=== PATIENT | male | born 1960 | race Caucasian/White ===

== ENCOUNTER 2020-12-08 18:02 | Emergency (ER) | payer MEDICAID, SELFPAY ==
[2020-12-08 18:25] VITALS: BP 172/89; PULSE 79; RESP 18; TEMP 37.2; O2SAT 96; BMI 22.7
[2020-12-08] MEDS: lidocaine 2% viscous 15 ML, aluminum-mag hydrox-simethicon 30 ML, sucralfate oral liq 1 GM PO (21:12)
[2020-12-08] MEDS: pantoprazole 40 mg SDV IVP (21:20)
--- NOTE | 2020-12-08 21:23 | ED_ITS ---
HPI - Abdominal Pain General: Chief Complaint: Abdominal Pain Stated Complaint: UPPER ABD PAIN Time Seen by Provider: 12/08/20 20:46 Source: patient Mode of arrival: ambulatory Limitations: no limitations History of Present Illness: HPI narrative: 60-year-old male presents to the emergency department with complaints of epigastric abdominal pain. Symptoms started 5 days ago and have persisted. Anything he eats or drinks worsens his pain. He states that he is unable to take the pain any longer and so he is here to be evaluated. He has nausea but no vomiting. He endorses some diarrhea. No fever. No sick contacts. MD elicited complaint: abdominal pain Onset (ago): day(s) (5) Pain Consistency: constant Location: Epigastric Severity: severe Quality: stabbing Radiation: none Migration to: no migration Exacerbating factors: eating Relieving factors: nothing Associated Symptoms: Denies anorexia, belching, bloating, change in bowel habits, change in stool character and chills Review of Systems 2 Const: Denies: chills GI: Denies: bloating, belching, change in bowel habits or change in stool character PFS ED PFSH: Social History (Updated 09/24/20 @ 08:36 by Bessy Landeros LPN) Smoking and tobacco status: current every day smoker cigarettes Packs smoked per day: 1.5 Alcohol intake: never Lives independently: Yes History of recent travel: No Physical Exam Const: COMMON NORMALS: no acute distress, average body habitus, patient oriented x3, no limitations, healthy appearing, alert and well nourished HENMT: COMMON NORMALS: normocephalic, atraumatic and moist oral mucous membranes HEAD & SCALP: normocephalic and atraumatic Neck/C-Spine: COMMON NORMALS: no meningeal signs and no JVD Resp: COMMON NORMALS: normal respiratory effort, No retractions, No use of accessory muscles, clear to auscultation bilaterally and percussion normal AUSCULTATION: clear to auscultation bilaterally PERCUSSION: percussion normal Cardio: COMMON NORMALS: no JVD, regular rate, regular rhythm, S1 normal heart sound present, S2 normal heart sound present, No gallops present (Cardio), No clicks present (Cardio), No murmurs present (Cardio), No rub (Cardio) and Peripheral pulses 2+ throughout RATE: regular rate RHYTHM: regular rhythm HEART SOUNDS: S1 normal heart sound present and S2 normal heart sound present PERIPHERAL PULSES: Peripheral pulses 2+ throughout GI: COMMON NORMALS: Normal to inspection, nondistended, normoactive bowel sounds present, Soft to palpation, No hepatosplenomegaly present, no masses and no bruits PALPATION: Yes Soft to palpation, Yes Tenderness to palpation present (GI) (epigastric) and Yes No hepatosplenomegaly present Extremity: COMMON NORMALS: normal to inspection, full ROM, capillary refill normal, no calf tenderness and no pedal edema Neuro: COMMON NORMALS: patient oriented x3 SENSORIUM/ORIENTATION: Yes alert MENINGEAL SIGNS: Yes no meningeal signs Skin: COMMON NORMALS: no rashes or lesions noted, no wounds, turgor normal, no jaundice, no petechiae and no mottling GENERAL SKIN EXAM: no rashes or lesions noted and turgor normal Course Reevaluation(s): Reevaluation #1: Discussed his lab findings with him. Negati ve for acute findings. GI cocktail resolved his pain completely. He is currently pain-free. I explained that his symptoms are consistent with acute gastritis and will manage him as such. We will discharge him home with a prescription for PPI and Carafate. He was also advised on a diet for gastritis. He voiced understanding and is in agreement with the plan. Time: 22:51 Vital Signs: Vital signs: Vital Signs Temperature 98.9 F 12/08/20 18:25 Pulse Rate 73 12/08/20 23:04 Respiratory Rate 18 12/08/20 23:04 Blood Pressure 165/96 12/08/20 23:04 Pulse Oximetry 98 12/08/20 23:04 MDM - Abdominal Pain MDM Narrative: Medical decision making narrative: 60-year-old male who presents to the emergency department with epigastric pain of 5 days duration. Evaluation in the emergency department is consistent with acute gastritis and his pain was relieved with a GI cocktail. He is discharged home with a prescription for PPI and Carafate. He is to follow-up with his primary care provider. Medical Records: Attestation: I reviewed the patient's medical records. Lab Data: Attestation: I reviewed the patient's lab results. Labs: Lab Results 06/27/21 06/27/21 06/27/21 Range/Units 21:11 21:22 21:22 WBC 12.0 H (4.0-10.0) 10^3/ uL RBC 4.79 (4.1-5.3) 10^6/u L Hgb 14.7 (11.7-16.6) g/dL Hct 44.6 (42.0-52.0) % MCV 93.1 (80-94) fL MCH 30.7 (28.0-34.0) pg MCHC 33.0 (30.0-36.0) g/dL RDW 12.7 (12.1-15.1) % Plt Count 240 (130-400) 10^3/c mm MPV 11.1 H (7.4-10.4) fL Neut % (Auto) 57.5 % Lymph % (Auto) 30.5 % [place] % (Auto) 8.3 % Eos % (Auto) 2.3 % Baso % (Auto) 0.8 % Neut # (Auto) 6.88 (1.8-7.7) 10^3/u L Lymph # (Auto) 3.6 (0.8-4.8) 10^3/u L [place] # (Auto) 1.0 H (0.2-0.9) 10^3/u L Eos # (Auto) 0.3 (0.0-0.8) 10^3/u L Baso # (Auto) 0.1 (0.0-0.1) 10^3/u L Nucleated RBC % (a uto) 0 % Nucleated RBCs # 0.0 /100WBC Sodium 141 (136-145) mmol/L Potassium 3.8 (3.5-5.1) mmol/L Chloride 99 (98-107) mmol/L Carbon Dioxide 30 H (22-29) mmol/L Anion Gap 15.8 (5-19) BUN 12 (8-23) mg/dL Creatinine 0.8 (0.7-1.2) mg/dL GFR Calculation 98.0 (90-130) mL/min Glucose 112 (65-115) mg/dL Calculated Osmolal ity 293 (285-295) mOsm/k g Calcium 10.4 (8.5-10.5) mg/dL Total Bilirubin 0.4 (0.15-1.2) mg/dL AST 15 (0-40) U/L ALT 12 (0-41) U/L Alkaline Phosphata se 103 (40-130) IU/L C-Reactive Protein 26.7 H (0.0-4.9) mg/L Total Protein 7.5 (6.6-8.7) g/dL Albumin 4.6 (3.5-5.2) g/dL Globulin 2.9 (1.3-4.6) g/dL Lipase 16 (13-60) U/L Urine Color Yellow (Yellow) Urine Appearance Clear (CLEAR) Urine pH 7 (5-7) Ur Specific Gravit y 1.010 (1.005-1.030) Urine Protein Neg (Negative) Urine Glucose (UA) Norm (Normal) Urine Ketones Negative (Negative) Urine Blood Neg (Negative) Urine Nitrate Negative (Negative) Urine Bilirubin Neg (Negative) Urine Urobilinogen Norm (Negative) mg/dL Ur Leukocyte Belinda ase Negative (Negative) Discharge Plan Discharge Patient Disposition: Home Clinical Impression: Acute gastritis Qualifiers: Gastritis type: unspecified gastritis Gastritis bleeding: without bleeding Qualified Code(s): K29.00 - Acute gastritis without bleeding Condition: Stable Prescriptions: New Carafate 1 gram tablet 1 g PO TID Qty: 42 RF: 0 omeprazole 40 mg capsule,delayed release(DR/EC) 40 mg PO DAILY Qty: 30 RF: 0 Continued amlodipine 10 mg tablet 10 mg PO DAILY RF: 0 allopurinol 300 mg tablet 300 mg PO DAILY RF: 0 celecoxib [Celebrex] 200 mg capsule 200 mg PO BID RF: 0 gabapentin 600 mg tablet 1,200 mg PO TID RF: 0 tizanidine 2 mg tablet 2 mg PO BID PRNRF: 0 cetirizine [Zyrtec] 10 mg tablet 10 mg PO DAILY PRNRF: 0 fluticasone propionate 50 mcg/actuation spray,suspension 1 spray intranasal DAILY RF: 0 Discharge Orders: Discharge ED (Routine); Ordered 12/08/20 Ordered By: Jae Santoyo Referrals: Darren Jennings [Primary Care Provider] - 1-3 days Discharge Diet: As Directed Discharge Activity: Increase activity as tolerated Patient Instructions: Gastritis (ED), Diet for Ulcers and Gastritis (ED) Activity Restrictions/Additional Instructions: Return for any new or worsening symptoms. Follow-up with your primary care provider within 3 days. Take the medications as prescribed. Follow the diet as instructed. Coding Level of Care Code ED Slot Operations Manager for Bertin Lazaro
[2020-12-08 21:24] VITALS: BP 191/94; PULSE 72; RESP 18; O2SAT 98
[2020-12-08 21:46] LABS: Add Urine Microscopic? NO; Charge for UA Resulting for Rev
[2020-12-08 22:12] LABS: Bilirubin Urine Neg (Negative); Blood Urine Neg (Negative); Glucose Urine UA Norm (Normal); Ketones Urine Negative (Negative); Leukocyte Esterase Urine Negative (Negative); Nitrate Urine Negative (Negative); Protein Urine Neg (Negative); Urine Appearance Clear (CLEAR); Urine Color Yellow (Yellow); Urobilinogen Urine Norm (Negative); pH Urine 7 (5-7)
[2020-12-08 22:14] LABS: Basophils # 0.1 10^3/uL (0.0-0.1); Basophils % 0.8 %; Eosinophils # 0.3 10^3/uL (0.0-0.8); Eosinophils % 2.3 %; Hematocrit 44.6 % (42.0-52.0); Hemoglobin 14.7 g/dL (11.7-16.6); Lymphocytes # 3.6 10^3/uL (0.8-4.8); Lymphocytes % 30.5 %; Mean Corpuscular Hemoglobin 30.7 pg (28.0-34.0); Mean Corpuscular Volume 93.1 fL (80-94); Mean Platelet Volume 11.1 fL (7.4-10.4); Monocytes % 8.3 %; Neutrophils # 6.88 10^3/uL (1.8-7.7); Neutrophils % 57.5 %; Nucleated Red Blood Cells % 0 %; Platelet Count 240 10^3/cmm (130-400); Red Blood Count 4.79 10^6/uL (4.1-5.3); Red Cell Distribution Width 12.7 % (12.1-15.1)
[2020-12-08 22:15] VITALS: BP 177/87; PULSE 69; RESP 14; O2SAT 96
[2020-12-08 22:15] LABS: Alanine Aminotransferase 12 U/L (0-41); Albumin Level 4.6 g/dL (3.5-5.2); Alkaline Phosphatase 103 IU/L (40-130); Anion Gap 15.8 (5-19); Aspartate Amino Transferase 15 U/L (0-40); Blood Urea Nitrogen 12 mg/dL (8-23); C Reactive Protein 26.7 mg/L (0.0-4.9); Calcium 10.4 mg/dL (8.5-10.5); Carbon Dioxide 30 mmol/L (22-29); Chloride 99 mmol/L (98-107); Globulin 2.9 g/dL (1.3-4.6); Glucose 112 mg/dL (65-115); Lipase 16 U/L (13-60); Osmolality Calculated 293 mOsm/kg (285-295); Potassium 3.8 mmol/L (3.5-5.1); Sodium 141 mmol/L (136-145); Total Bilirubin 0.4 mg/dL (0.15-1.2); Total Protein 7.5 g/dL (6.6-8.7)
[2020-12-08 23:04] VITALS: BP 165/96; PULSE 73; RESP 18; O2SAT 98
== END 2020-12-08 23:05 | disposition home or self-care (01) ==
PROVIDERS: Physician Assistant; Emergency Provider Family Medicine; PCP Family Medicine
DX: K29.00 Acute gastritis without bleeding (principal); F17.210 Nicotine dependence, cigarettes, uncomplicated
CPT/HCPCS: 80053; 81003; 83690; 85025; 86140; 96374; 99283; C9113

== ENCOUNTER → 2021-07-10 08:31 | Outpatient (BNVA) | payer MEDICAID, SELFPAY | PROVIDERS: PCP Family Medicine; Visit Provider Psychiatry & Neurology Psychiatry | DX: F11.20 Opioid dependence, uncomplicated (principal); Z79.899 Other long term (current) drug therapy; F10.21 Alcohol dependence, in remission | CPT/HCPCS: 80307; 99204 ==

== ENCOUNTER 2021-07-11 16:12 | Emergency (ER) | payer MEDICAID, SELFPAY ==
[2021-07-11 16:29] VITALS: PULSE 115; RESP 30; TEMP 36.6; O2SAT 99
--- NOTE | 2021-07-11 17:02 | ED_ITS ---
Documented by User: Vance Foote DO 07/14/21 07:18 HPI - General Adult General: Chief complaint: General Medical Stated complaint: Sudden withdrawls from prescription meds Time Seen by Provider: 07/11/21 16:36 History of Present Illness: 61-year-old male presents emergency room complaining of withdrawals from methadone. They were planning to switch him over from methadone to Suboxone. When he began to feel like he was having a little bit of withdrawal symptoms he took his first Suboxone. He is not take any methadone for 2 days. He is tremulous nauseous and cold. Extremely anxious. Has not had any vomiting he has had some diarrhea. He is under the care of the physician for this transition and had received instructions. He felt that he had followed them but may have waited a little too long before taking this for Suboxone dose Onset (ago): hour(s) Severity: mild Quality: aching Pain Consistency: constant Relieving factors: none Exacerbating factors: none Associated symptoms: Reports diaphoresis, decreased appetite, headache(s), m alaise, nausea and palpitations; Deny chest pain, confusion, cough, dyspnea, fevers/chills, rash, seizures, short of breath, syncope or vomiting Treatments prior to arrival: none Review of Systems Const: Reports: malaise and diaphoresis ENMT: Denies: throat pain, ear or mastoid pain, nasal discharge or nasal congestion Card: Reports: palpitations; Denies: chest pain or syncope Resp: Denies: dyspnea GI: Reports: nausea; Denies: vomiting : Denies: flank pain, dysuria, urinary frequency or urinary urgency Skin/Breast: Denies: rash Neuro: Reports: headache(s); Denies: confusion PFSH ED PFSH: Medical History Psychiatric care Social History Smoking and tobacco status: current every day smoker e-cigarettes E-Cigarette Details: vaporizer device and with nicotine Quit status (tobacco): has tried quititng Number of times tried to quit tobacco: 3 Second hand smoke exposure: Yes Alcohol intake: never Lives independently: Yes History of recent travel: No Physical Exam Const: GENERAL APPEARANCE: cooperative ORIENTATION/CONSCIOUSNESS: Yes awake, Yes oriented to person, Yes oriented to place and Yes oriented to time HENMT: COMMON NORMALS: normocephalic, atraumatic and hearing grossly normal bilaterally HEAD & SCALP: normocephalic and atraumatic Neck/C-Spine: COMMON NORMALS: no JVD Resp: COMMON NORMALS: normal respiratory effort, No retractions, No use of accessory muscles and clear to auscultation bilaterally AUSCULTATION: clear to auscultation bilaterally Cardio: COMMON NORMALS: no JVD, regular rate, regular rhythm and No murmurs present (Cardio) RATE: regular rate RHYTHM: regular rhythm GI: COMMON NORMALS: Soft to palpation and No hepatosplenomegaly present AUSCULTATION: Yes normoactive bowel sounds PALPATION: Yes Soft to palpation, No Tenderness to palpation present (GI), No Guarding due to palpation present (GI) and Yes No hepatosplenomegaly present Extremity: COMMON NORMALS: normal to inspection, capillary refill normal, no clubbing, cyanosis or edema, no calf tenderness and no pedal edema Neuro: SENSORIUM/ORIENTATION: Yes oriented to person, Yes oriented to place and Yes oriented to time Skin: COMMON NORMALS: no rashes or lesions noted GENERAL SKIN EXAM: no rashes or lesions noted Course Vital Signs: Vital signs: Vital Signs Temperature 97.9 F 07/11/21 16:29 Pulse Rate 117 H 07/11/21 17:22 Respiratory Rate 26 H 07/11/21 17:22 Blood Pressure 165/131 07/11/21 17:22 Pulse Oximetry 100 07/11/21 17:22 [facility] - General Adult Medical Decision Making Turned over to Dr. Holden at change shift see his note final diagnosis and disposition. Medical Records I reviewed the patient's medical records. Lab Data I reviewed the patient's lab results. : 07/11/21 17:31 07/11/21 17:31 Laboratory Results WBC 14.0 10^3/uL (4.0-10.0) H 07/11/21 17:31 RBC 4.88 10^6/uL (4.1-5.3) 07/11/21 17:31 Hgb 14.6 g/dL (11.7-16.6) 07/11/21 17:31 Hct 43.8 % (42.0-52.0) 07/11/21 17:31 MCV 89.8 fl (80-94) 07/11/21 17: MCH 29.9 pg (28.0-34.0) 07/11/21 17: MCHC 33.3 g/dL (30.0-36.0) 07/11/21 17: RDW 13.1 % (12.1-15.1) 07/11/21 17: Plt Count 310 10^3/cmm (130-400) 07/11/21 17: MPV 10.5 fL (7.4-10.4) H 07/11/21 17: Neut % (Auto) 78.3 % 07/11/21 17: Lymph % (Auto) 14.5 % 07/11/21 17: [place] % (Auto) 5.6 % 07/11/21 17: Eos % (Auto) 0.5 % 07/11/21 17: Baso % (Auto) 0.4 % 07/11/21: Neut # (Auto) 10.95 10^3/uL (1.8-7.7) H 07/11/21 17: Lymph # (Auto) 2.0 10^3/uL (0.8-4.8) 07/11/21 17: [place] # (Auto) 0.8 10^3/uL (0.2-0.9) 07/11/21 17: Eos # (Auto) 0.1 10^3/uL (0.0-0.8) 07/11/21 17: Baso # (Auto) 0.1 10^3/uL (0.0-0.1) 07/11/21 17: Nucleated RBC % (auto) 0 % 07/11/21 17: Nucleated RBCs # 0.0 /100WBC 07/11/21 17: Sodium 139 mmol/L (136-145) 07/11/21 17: Potassium 4.5 mmol/L (3.5-5.1) 07/11/21 17: Chloride 101 mmol/L (98-107) 07/11/21 17: Carbon Dioxide 19 mmol/L (22-29) L 07/11/21 17: Anion Gap 23.5 (5-19) H 07/11/21 17:31 BUN 16 mg/dL (8-23) 07/11/21 17:31 Creatinine 0.7 mg/dL (0.7-1.2) 07/11/21 17:31 GFR Calculation 113.9 mL/min (90-130) 07/11/21 17:31 Glucose 146 mg/dL (65-115) H 07/11/21 17:31 Calculated Osmolality 292 mOsm/kg (285-295) 07/11/21 17:31 Calcium 11.1 mg/dL (8.5-10.5) H 07/11/21 17:31 Total Bilirubin 0.2 mg/dL (0.15-1.2) 07/11/21 17:31 AST 20 U/L (0-40) 07/11/21 17:31 ALT 35 U/L (0-41) 07/11/21 17:31 Alkaline Phosphatase 99 IU/L (40-130) 07/11/21 17:31 Total Protein 8.0 g/dL (6.6-8.7) 07/11/21 17:31 Albumin 4.9 g/dL (3.5-5.2) 07/11/21 17:31 Globulin 3.1 g/dL (1.3-4.6) 07/11/21 17:31 Discharge Plan Discharge Patient Disposition: Home Clinical Impression: Opioid use disorder, severe, dependence Condition: Stable Prescriptions: New Ativan 2 mg tablet 2 mg PO TID PRN (Reason: agitation) Qty: 12 0RF Zofran 4 mg tablet 4 mg PO Q6H PRN (Reason: nausea and vomiting) Qty: 10 0RF clonidine HCl 0.2 mg tablet 0.2 mg PO TID Qty: 10 0RF No Action allopurinol 300 mg tablet 300 mg PO DAILY 0RF celecoxib [Celebrex] 200 mg capsule 200 mg PO BID 0RF amlodipine 10 mg tablet 5 mg PO DAILY 0RF multivitamin Tablet 1 tab PO DAILY 0RF methadone 40 mg tablet,soluble 75 mg PO DAILY 0RF sildenafil 100 mg tablet 100 mg PO DAILY PRN0RF Rx Instructions: administer 30 minutes to 4 hours before activity buprenorphine-naloxone 2-0.5 mg film 2 film sublingual DAILY Qty: 14 0RF Rx Instructions: place 1 strip/tab under (each) side of tongue gabapentin 600 mg tablet 1,200 mg PO TID 0RF tizanidine 2 mg tablet 2 mg PO BID PRN0RF cetirizine [Zyrtec] 10 mg tablet 10 mg PO DAILY PRN0RF fluticasone propionate 50 mcg/actuation spray,suspension 1 spray intranasal DAILY PRN (Reason: allergy symptoms) 0RF Rx Instructions: administer into each nostril omeprazole 40 mg capsule,delayed release(DR/EC) 40 mg PO DAILY Qty: 30 0RF Discharge Orders: Discharge ED (Routine); Ordered 07/11/21 Ordered By: Daniel Holden Referrals: Darren Jennings [Primary Care Provider] - 1-3 days Discharge Diet: Advance as tolerated and Clear Liquid Discharge Activity: Increase activity as tolerated Patient Instructions: Opioid Safety Activity Restrictions/Additional Instructions: Return for vomiting liquids or medications despite treatment, inability to tolerate withdrawal or medication, fever, mental status changes, any other concerning symptoms. Take the medication as directed for at least the next 48 hours, then as needed. Take your nightly dose of Suboxone when you get home. Coding Level of Care Code ED Pain Medicine Physician for Chg Fwd Exam Comprehensive Documented by User: Daniel Holden DO 07/11/21 19:15 HPI - General Adult General: Chief complaint: General Medical Stated complaint: Sudden withdrawls from prescription meds Time Seen by Provider: 07/11/21 16:36 [facility] ED PFSH: Medical History Psychiatric care Social History Smoking and tobacco status: current every day smoker e-cigarettes E-Cigarette Details: vaporizer device and with nicotine Quit status (tobacco): has tried quititng Number of times tried to quit tobacco: 3 Second hand smoke exposure: Yes Alcohol intake: never Lives independently: Yes History of recent travel: No Course Vital Signs: Vital signs: Vital Signs Temperature 97.9 F 07/11/21 16:29 Pulse Rate 117 H 07/11/21 17:22 Respiratory Rate 26 H 07/11/21 17:22 Blood Pressure 165/131 07/11/21 17:22 Pulse Oximetry 100 07/11/21 17:22 MDM - General Adult Medical Decision Making Turned over to Dr. Holden at change shift see his note final diagnosis and disposition. Received in checkout from Dr. Foley at shift change. This gentleman has significant methadone withdrawal. He has been treated here with Ativan and clonidine. There was some improvement initially. He still having some trouble. His significant other would like to take him home and try to take care of him there. He has Suboxone there. He will take his dose tonight. He will be prescribed Ativan and clonidine scheduled for the next 48 hours, then as needed as well as a Suboxone. They know to return for uncontrollable symptoms. Lab Data : 07/11/21 17:31 07/11/21 17:31 Laboratory Results WBC 14.0 10^3/uL (4.0-10.0) H 07/11/21 17:31 RBC 4.88 10^6/uL (4.1-5.3) 07/11/21 17:31 Hgb 14.6 g/dL (11.7-16.6) 07/11/21 17:31 Hct 43.8 % (42.0-52.0) 07/11/21 17:31 MCV 89.8 fl (80-94) 07/11/21 17:31 MCH 29.9 pg (28.0-34.0) 07/11/21 17:31 MCHC 33.3 g/dL (30.0-36.0) 07/11/21 17:31 RDW 13.1 % (12.1-15.1) 07/11/21 17:31 Plt Count 310 10^3/cmm (130-400) 07/11/21 17:31 MPV 10.5 fL (7.4-10.4) H 07/11/21 17:31 Neut % (Auto) 78.3 % 07/11/21 17:31 Lymph % (Auto) 14.5 % 07/11/21 17:31 [place] % (Auto) 5.6 % 07/11/21 17:31 Eos % (Auto) 0.5 % 07/11/21 17:31 Baso % (Auto) 0.4 % 07/11/21 17:31 Neut # (Auto) 10.95 10^3/uL (1.8-7.7) H 07/11/21 17:31 Lymph # (Auto) 2.0 10^3/uL (0.8-4.8) 07/11/21 17: [place] # (Auto) 0.8 10^3/uL (0.2-0.9) 07/11/21 17: Eos # (Auto) 0.1 10^3/uL (0.0-0.8) 07/11/21 17: Baso # (Auto) 0.1 10^3/uL (0.0-0.1) 07/11/21 17: Nucleated RBC % (auto) 0 % 07/11/21 17: Nucleated RBCs # 0.0 /100WBC 07/11/21 17:31 Sodium 139 mmol/L (136-145) 07/11/21 17: Potassium 4.5 mmol/L (3.5-5.1) 07/11/21 17: Chloride 101 mmol/L (98-107) 07/11/21 17: Carbon Dioxide 19 mmol/L (22-29) L 07/11/21 17:31 Anion Gap 23.5 (5-19) H 07/11/21 17:31 BUN 16 mg/dL (8-23) 07/11/21 17: Creatinine 0.7 mg/dL (0.7-1.2) 07/11/21 17:31 GFR Calculation 113.9 mL/min (90-130) 07/11/21 17:31 Glucose 146 mg/dL (65-115) H 07/11/21 17:31 Calculated Osmolality 292 mOsm/kg (285-295) 07/11/21 17:31 Calcium 11.1 mg/dL (8.5-10.5) H 07/11/21 17:31 Total Bilirubin 0.2 mg/dL (0.15-1.2) 07/11/21 17: AST 20 U/L (0-40) 07/11/21 17: ALT 35 U/L (0-41) 07/11/21 17:31 Alkaline Phosphatase 99 IU/L (40-130) 07/11/21 17:31 Total Protein 8.0 g/dL (6.6-8.7) 07/11/21 17:31 Albumin 4.9 g/dL (3.5-5.2) 07/11/21 17:31 Globulin 3.1 g/dL (1.3-4.6) 07/11/21 17:31 Discharge Plan Discharge Patient Disposition: Home Clinical Impression: Opioid use disorder, severe, dependence Condition: Stable Prescriptions: New Ativan 2 mg tablet 2 mg PO TID PRN (Reason: agitation) Qty: 12 0RF Zofran 4 mg tablet 4 mg PO Q6H PRN (Reason: nausea and vomiting) Qty: 10 0RF clonidine HCl 0.2 mg tablet 0.2 mg PO TID Qty: 10 0RF No Action allopurinol 300 mg tablet 300 mg PO DAILY 0RF celecoxib [Celebrex] 200 mg capsule 200 mg PO BID 0RF amlodipine 10 mg tablet 5 mg PO DAILY 0RF multivitamin Tablet 1 tab PO DAILY 0RF methadone 40 mg tablet,soluble 75 mg PO DAILY 0RF sildenafil 100 mg tablet 100 mg PO DAILY PRN0RF Rx Instructions: administer 30 minutes to 4 hours before activity buprenorphine-naloxone 2-0.5 mg film 2 film sublingual DAILY Qty: 14 0RF Rx Instructions: place 1 strip/tab under (each) side of tongue gabapentin 600 mg tablet 1,200 mg PO TID 0RF tizanidine 2 mg tablet 2 mg PO BID PRN0RF cetirizine [Zyrtec] 10 mg tablet 10 mg PO DAILY PRN0RF fluticasone propionate 50 mcg/actuation spray,suspension 1 spray intranasal DAILY PRN (Reason: allergy symptoms) 0RF Rx Instructions: administer into each nostril omeprazole 40 mg capsule,delayed release(DR/EC) 40 mg PO DAILY Qty: 30 0RF Discharge Orders: Discharge ED (Routine); Ordered 07/11/21 Ordered By: Daniel Holden Referrals: Darren Jennings [Primary Care Provider] - 1-3 days Discharge Diet: Advance as tolerated and Clear Liquid Discharge Activity: Increase activity as tolerated Patient Instructions: Opioid Safety Activity Restrictions/Additional Instructions: Return for vomiting liquids or medications despite treatment, inability to tolerate withdrawal or medication, fever, mental status changes, any other concerning symptoms. Take the medication as directed for at least the next 48 hours, then as needed. Take your nightly dose of Suboxone when you get home. Coding Level of Care Code ED Pain Medicine Physician for Bertin Lazaro Exam Comprehensive
[2021-07-11 17:18] VITALS: BP 165/131
[2021-07-11] MEDS: promethazine 25 mg/mL SDV 1 mL IM (17:18)
[2021-07-11] MEDS: cloNIDine 0.1 mg Tablet PO ×2 (17:18→18:21)
[2021-07-11] MEDS: LORazepam 2 mg/mL INJ 1 mL IVP ×2 (17:21→18:22)
[2021-07-11] MEDS: sodium chloride 0.9% 1,000 ML 999 ML IV (17:21)
[2021-07-11 17:22] VITALS: BP 165/131; PULSE 117; RESP 26; O2SAT 100
[2021-07-11 17:46] LABS: Basophils # 0.1 10^3/uL (0.0-0.1); Basophils % 0.4 %; Eosinophils # 0.1 10^3/uL (0.0-0.8); Eosinophils % 0.5 %; Hematocrit 43.8 % (42.0-52.0); Hemoglobin 14.6 g/dL (11.7-16.6); Lymphocytes % 14.5 %; Mean Corpuscular HGB Conc 33.3 g/dL (30.0-36.0); Mean Corpuscular Hemoglobin 29.9 pg (28.0-34.0); Mean Corpuscular Volume 89.8 fl (80-94); Mean Platelet Volume 10.5 fL (7.4-10.4); Monocytes # 0.8 10^3/uL (0.2-0.9); Monocytes % 5.6 %; Neutrophils # 10.95 10^3/uL (1.8-7.7); Neutrophils % 78.3 %; Nucleated Red Blood Cells % 0 %; Platelet Count 310 10^3/cmm (130-400); Red Blood Count 4.88 10^6/uL (4.1-5.3); Red Cell Distribution Width 13.1 % (12.1-15.1)
[2021-07-11 18:01] LABS: Alanine Aminotransferase 35 U/L (0-41); Albumin Level 4.9 g/dL (3.5-5.2); Alkaline Phosphatase 99 IU/L (40-130); Anion Gap 23.5 (5-19); Aspartate Amino Transferase 20 U/L (0-40); Blood Urea Nitrogen 16 mg/dL (8-23); Calcium 11.1 mg/dL (8.5-10.5); Carbon Dioxide 19 mmol/L (22-29); Chloride 101 mmol/L (98-107); Globulin 3.1 g/dL (1.3-4.6); Glomerular Filtration Rate 113.9 mL/min (90-130); Glucose 146 mg/dL (65-115); Osmolality Calculated 292 mOsm/kg (285-295); Potassium 4.5 mmol/L (3.5-5.1); Sodium 139 mmol/L (136-145); Total Bilirubin 0.2 mg/dL (0.15-1.2)
== END 2021-07-11 20:18 | disposition home or self-care (01) ==
PROVIDERS: Family Medicine; Emergency Provider Emergency Medicine; PCP Family Medicine
DX: F11.20 Opioid dependence, uncomplicated (principal); Z79.891 Long term (current) use of opiate analgesic; F17.290 Nicotine dependence, other tobacco product, uncomplicated
CPT/HCPCS: 80053; 85025; 96372; 96374; 96375; 96376; 99284; J2060; J2550; J7030

== ENCOUNTER → 2021-07-21 11:27 | Outpatient (BNVA) | payer MEDICAID, SELFPAY | PROVIDERS: PCP Family Medicine; Visit Provider Psychiatry & Neurology Psychiatry | DX: F10.21 Alcohol dependence, in remission (principal); F11.20 Opioid dependence, uncomplicated; Z79.899 Other long term (current) drug therapy | CPT/HCPCS: 80307; 99214 ==

== ENCOUNTER → 2021-08-04 11:23 | Outpatient (BNVA) | payer MEDICAID, SELFPAY | PROVIDERS: PCP Family Medicine; Visit Provider Psychiatry & Neurology Psychiatry | DX: F11.20 Opioid dependence, uncomplicated (principal); Z79.899 Other long term (current) drug therapy; F10.21 Alcohol dependence, in remission | CPT/HCPCS: 80307; 99214 ==

== ENCOUNTER → 2021-09-29 10:29 | Outpatient (BNVA) | payer MEDICAID, SELFPAY | PROVIDERS: PCP Family Medicine; Visit Provider Psychiatry & Neurology Psychiatry | DX: F11.20 Opioid dependence, uncomplicated (principal); Z79.899 Other long term (current) drug therapy; F10.21 Alcohol dependence, in remission | CPT/HCPCS: 99214; 80307 ==

== ENCOUNTER → 2021-12-19 11:35 | Outpatient (BNVA) | payer MEDICAID, OTHER, SELFPAY | PROVIDERS: PCP Family Medicine; Visit Provider Psychiatry & Neurology Psychiatry | DX: F11.20 Opioid dependence, uncomplicated (principal); Z79.899 Other long term (current) drug therapy; F10.21 Alcohol dependence, in remission | CPT/HCPCS: 80307 ==

== ENCOUNTER → 2022-03-13 10:43 | Outpatient (BNVA) | payer MEDICAID, SELFPAY | PROVIDERS: PCP Family Medicine; Visit Provider Psychiatry & Neurology Psychiatry | DX: F11.20 Opioid dependence, uncomplicated (principal); Z79.899 Other long term (current) drug therapy; F10.21 Alcohol dependence, in remission | CPT/HCPCS: 80307 ==

== ENCOUNTER → 2022-08-21 12:00 | Outpatient (BNVA) | payer MEDICAID, SELFPAY | PROVIDERS: PCP Family Medicine; Visit Provider Psychiatry & Neurology Psychiatry | DX: F10.21 Alcohol dependence, in remission (principal); F11.20 Opioid dependence, uncomplicated; Z79.899 Other long term (current) drug therapy | CPT/HCPCS: 80307 ==

== ENCOUNTER 2022-09-06 22:50 | Emergency (ER) | payer MEDICAID, SELFPAY ==
[2022-09-06 23:12] VITALS: BP 175/93; PULSE 79; RESP 22; TEMP 36.8; O2SAT 99; BMI 24.3
[2022-09-07 01:04] LABS: Influenza A by IFA negative (Negative); Influenza B by IFA negative (Negative); SARS Covid-2 Antigen negative (Negative)
--- NOTE | 2022-09-07 03:13 | ED_ITS ---
HPI - URI/Sore Throat General: Chief Complaint: Upper Respiratory Infection Stated Complaint: congestion Time Seen by Provider: 09/07/22 00:36 Source: patient Mode of arrival: ambulatory Limitations: no limitations History of Present Illness: Patient presents to the emergency department today for evaluation and treatment of complaints of nasal congestion. Chart review shows patient was already seen today at another facility where he was diagnosed with sinusitis and given a prescription for Augmentin. They recommended kgij-xgs-ovntryk options for nasal congestion including Flonase. Patient states his nose has been congested now for the last couple of days. Asked him if he would start his antibiotics and he stated he has not as the pharmacy he chose is not open. Asked him if he used the yhsn-ego-juxowvp options previously discussed such as Flonase but, he said that those do not work for him. I asked about a Latasha pot rinse and he indicates he will not use those. Associated symptoms: Reports nasal congestion Review of Systems General: Reports: 10 or more systems reviewed and unremarkable except in HPI and below ENMT: Reports: nasal discharge and nasal congestion PFS ED PFSH: Medical History Psychiatric care Social History Smoking and tobacco status: current every day smoker e-cigarettes E-Cigarette Details: vaporizer device and with nicotine E-cig/vape details: Refill/daily. Quit status (tobacco): has tried quititng Number of times tried to quit tobacco: 3 Second hand smoke exposure: No Smoking risk assessment/counseling performed?: No Alcohol intake: former Year of sobriety/quit date alcohol: 2018 Desire information about alcohol rehabilitation?: No Counseling given: No Desire information about substance/drug rehabilitation?: No Counseling given: No Lives independently: Yes Physical Exam Const: COMMON NORMALS: no acute distress, patient oriented x3 and alert HENMT: COMMON NORMALS: normocephalic, hearing grossly normal bilaterally, external ears normal, Normal external nose present and moist oral mucous membranes HEAD & SCALP: normocephalic NOSE: Normal external nose present EXTERNAL EAR: Yes external ears normal OTHER: Patient is audibly congested and is packing twisted up tissues into his nose. Eye: COMMON NORMALS: Equal, round and reactive pupils present, EOMs intact bilaterally and conjunctivae normal CONJUNCTIVA: Yes conjunctivae normal PUPIL: Yes Equal, round and reactive pupils present Neck/C-Spine: COMMON NORMALS: no JVD Lymph: LYMPHATIC: no lymphadenopathy noted Resp: COMMON NORMALS: normal respiratory effort, No retractions and No use of accessory muscles Cardio: COMMON NORMALS: no JVD and regular rate RATE: regular rate : COMMON NORMALS: Yes no CVA tenderness BLADDER/KIDNEY EXAM: Yes no CVA tenderness Back/Pelvis: COMMON NORMALS: no CVA tenderness, thoracic and lumbar spine normal to inspection and thoraco-lumbar ROM normal Extremity: COMMON NORMALS: normal to inspection, full ROM and no pedal edema Neuro: COMMON NORMALS: patient oriented x3 SENSORIUM/ORIENTATION: Yes alert Skin: COMMON NORMALS: no rashes or lesions noted and turgor normal GENERAL SKIN EXAM: no rashes or lesions noted and turgor normal Course Vital Signs: Vital signs: Vital Signs Temperature 98.2 F 09/06/22 23:12 Pulse Rate 79 09/06/22 23:12 Respiratory Rate 22 H 09/06/22 23:12 Blood Pressure 175/93 09/06/22 23:12 Pulse Oximetry 99 09/06/22 23:12 Oxygen Delivery Me thod 09/06/22 23:12 MDM - URI/Sore Throat Medical Decision Making Patient presents to the emergency department today for complaints of nasal congestion. Patient was already seen and evaluated earlier today and diagnosed with sinusitis and given a prescription for Augmentin. Patient has not taken this medication yet. I did offer the first dose here in the ER but patient refused. Patient also indicates he does not use the imcv-vzc-sebqfgr nasal congestion medications as they do not work or he refuses to use sinus rinses. I asked the patient what it is that does work for him as I thought he seemed to be indicating that there was a different treatment he had not received. However, patient stated he was wanting something that would take his nasal congestion away tonight. Explained to him that there is no medication that will instantly relieve his nasal congestion. Explained that we recommend kbdu-fgt-usmsbpr treatments such as Flonase, saline sprays, [place], and antihistamines. Patient got upset that there was no other medication he could get. Again, offered him his first antibiotic dose here in the ER tonight but he refused. Patient indicated he just wanted to go home and left before receiving discharge paperwork. Differential Diagnosis Likely upper respiratory infection, sinusitis and viral infection Lab Data Laboratory Results Influenza Type A Ag negative (Negative) 09/07/22 00:36 Influenza Type B Ag negative (Negative) 09/07/22 00:36 SARS-CoV-2 Ag (Rapid) negative (Negative) 09/07/22 00:36 Discharge Plan Discharge Patient Disposition: Home Clinical Impression: Complaint of nasal congestion Condition: Stable Prescriptions: No Action allopurinol 300 mg tablet 300 mg PO DAILY celecoxib [Celebrex] 200 mg capsule 200 mg PO BID amlodipine 10 mg tablet 5 mg PO DAILY multivitamin Tablet 1 tab PO DAILY sildenafil 100 mg tablet 100 mg PO DAILY PRN Rx Instructions: administer 30 minutes to 4 hours before activity gabapentin 600 mg tablet 1,200 mg PO TID tizanidine 2 mg tablet 2 mg PO BID PRN cetirizine [Zyrtec] 10 mg tablet 10 mg PO DAILY PRN fluticasone propionate 50 mcg/actuation spray,suspension 1 spray intranasal DAILY PRN (Reason: allergy symptoms) Rx Instructions: administer into each nostril buprenorphine-naloxone 8-2 mg film 1.5 film sublingual DAILY Qty: 45 2RF amoxicillin-pot clavulanate 875-125 mg tablet 1 tab PO BID 7 Days Qty: 14 0RF omeprazole 40 mg capsule,delayed release(DR/EC) 40 mg PO DAILY Qty: 30 0RF clonidine HCl 0.2 mg tablet 0.2 mg PO TID Qty: 10 0RF Discharge Orders: Discharge ED (Routine); Ordered 09/07/22 Ordered By: Caroline Lua Referrals: Darren Jennings [Primary Care Provider] - Discharge Diet: Usual diet Discharge Activity: Resume usual activity Coding Level of Care Code ED [employer] for Bertin Lazaro
== END 2022-09-07 01:56 | disposition home or self-care (01) ==
PROVIDERS: General Practice; Emergency Provider Physician Assistant; PCP Family Medicine
DX: R09.81 Nasal congestion (principal); Z20.822 Contact with and (suspected) exposure to COVID-19; F17.290 Nicotine dependence, other tobacco product, uncomplicated
CPT/HCPCS: 87426; 87804; 99283

== ENCOUNTER 2022-09-29 10:30 | Outpatient (CLI) | payer MEDICAID, SELFPAY ==
--- NOTE | 2022-09-29 10:36 | USCV_ITS ---
Warren Hernandez Age: 62 Gender: M : 1960 Exam Date: 09/29/2022 11:20 Ordering Phys: Darren Jennings Technologist: [place] [facility] [place] sob chest pain BP: 142 / 84 HR: 67 Rhythm: Sinus Technical Quality: Adequate MEASUREMENTS (Male / Female) Normal Values 2D ECHO LV Diastolic Diameter PLAX 4.0 cm 4.2 - 5.9 / 3.9 - 5.3 cm LV Systolic Diameter PLAX 2.6 cm IVS Diastolic Thickness 1.3 cm 0.6 - 1.0 / 0.6 - 0.9 cm IVS Systolic Thickness 1.9 cm LVPW Diastolic Thickness 0.9 cm 0.6 - 1.0 / 0.6 - 0.9 cm LVPW Systolic Thickness 1.7 cm LVOT Diameter 2.0 cm LV Ejection Fraction 2D Teich 65.3 % LV Ejection Fraction MOD 2C 63.5 % LV Ejection Fraction 2C AL 69.1 % LA Diameter 2.6 cm Aorta at Sinotubular Diameter 2.9 cm IVC Diameter 1.8 cm M-MODE Aortic Annulus Diameter 3.6 cm LA Ao Ratio MM 0.7 MV E Point Septal Separation 0.4 cm DOPPLER AV Peak Velocity 111.0 cm/s LVOT Peak Velocity 105.0 cm/s AV Area Cont Eq vti 2.7 cm squared AV Area Cont Eq pk 3.0 cm squared MV Peak Velocity 58.0 cm/s MV Area PHT 2.6 cm squared Mitral E to A Ratio 0.9 MV E' Velocity 29.5 cm/s Mitral E to MV E' Ratio 5.7 Mitral E to LV E' Lateral Ratio 6.2 Mitral E to LV E' Septal Ratio 5.2 TR Peak Velocity 159.7 cm/s TR Peak Gradient 10.2 mmHg TV Peak E Velocity 74.0 cm/s Right Atrial Pressure 3.0 mmHg Pulmonary Artery Systolic Pressu 13.2 mmHg FINDINGS Left Ventricle Normal left ventricular size, systolic function and wall thickness, with no regional wall motion abnormalities. Left ventricular ejection fraction is estimated at 60 %. Grade I/IV diastolic dysfunction (abnormal relaxation filling pattern), normal to mildly elevated filling pressures. Right Ventricle Normal right ventricular size and systolic function. Normal right ventricular systolic pressure. Right Atrium The right atrium is normal in size. Left Atrium The left atrium is normal in size. Mitral Valve Structurally normal mitral valve without significant stenosis or prolapse. There is no mitral regurgitation. Aortic Valve Structurally normal aortic valve without significant sclerosis or stenosis. There is no aortic regurgitation. Tricuspid Valve Structurally normal tricuspid valve. Trace tricuspid valve regurgitation. Pulmonic Valve Pulmonic valve not well visualized. Pericardium Normal pericardium without effusion. Aorta Normal ascending aorta dimension. IVC Inferior vena cava not visualized. CONCLUSIONS Normal left ventricular size, systolic function and wall thickness, with no regional wall motion abnormalities. Left ventricular ejection fraction is estimated at 60 %. Grade I/IV diastolic dysfunction (abnormal relaxation filling pattern), normal to mildly elevated filling pressures. There are no prior echocardiogram studies to compare. Dr. Orlando Julien MD (Electronically Signed) Final Date: 29 September 2022 16:24 S
== END 2022-09-29 10:31 | disposition home or self-care (01) ==
LOC: RAD 10:32
PROVIDERS: PCP Family Medicine; Visit Provider Family Medicine
DX: R68.89 Other general symptoms and signs (principal); R07.9 Chest pain, unspecified; Z82.49 Family history of ischemic heart disease and other diseases of the circulatory system; I45.10 Unspecified right bundle-branch block
CPT/HCPCS: 93306

== ENCOUNTER 2022-10-14 06:31 | Outpatient (CLI) | payer MEDICAID, SELFPAY ==
--- NOTE | 2022-10-14 | ECG_ITS ---
[facility] Test Date: 2022-10-14 Pat Name: Warren Hernandez Department: Room: Gender: Male Forming Process Worker: Evelina Vicente : 1960 Requested By: Darren Jennings Order Number: [id number] Heladio MD: Jabari Sears M.D. Interpretive Statements NAME OF STUDY: LEXISCAN SESTAMIBI STRESS TEST INDICATION: [Chest Pain, ] Procedure: At the baseline, the blood pressure was 161/83 mmHg with a heart rate of 62 bpm. The electrocardiogram showed normal sinus rhythm, incomplete right bundle branch block. The Lexiscan was infused over a period of 20 seconds. A total of 0.4 mg of Lexiscan was infused. The stress phase was continued for a total of 5 minutes. Heart rate was at the end of stress phase was 73 bpm and a blood pressure of 145/77 mmHg. The EKG at the peak infusion revealed normal sinus rhythm with no significant ST-T wave changes. Sestamibi was injected 20 seconds after the Lexiscan infusion. Blood pressure at the end of recovery phase was 146/77 mmHg with a heart rate of 72 bpm. Conclusion: 1. Normal EKG response to Lexiscan infusion 2. No Lexiscan induced chest pain or cardiac arrhythmia. 3. Normal blood pressure and heart rate response. 4. Sestamibi/sestamibi perfusion scan pending; see separate report. Electronically Signed On 10-31-2022 20:57:28 CDT by Jabari Sears M.D. [id number]
[2022-10-14 06:45] VITALS: BMI 23.6
--- NOTE | 2022-10-14 06:46 | NMCV_ITS ---
NM aury perf SPECT r/s* [id number] Warren Hernandez Age: 62 Gender: M : 1960 Exam Date: 10/14/2022 06:46 Ordering Phys: Darren Jennings Technologist: MOUNIKA Albrecht Exam Location: [facility] Indications: CHEST PAIN STRESS TEST Please see separate stress test report in [facility] for full findings IMAGE PROTOCOL Rest/Stress 1 Lexiscan Day Radiopharmaceutical Dose (mCi) Administration Site Administered by Rest: Tc-99m 10.9 IV MOUNIKA Vaughn Sestamibi Stress:Tc-99m 32.5 IV MOUNIKA Vaughn Sestamibi Rest: 14-Oct-2022 60 Discovery 630 Stress: 14-Oct-2022 30 Discovery 630 0.4mg Lexiscan. Images obtained in supine and prone position. SPECT RESULTS Technical Quality: Excellent Raw Data Analysis: Normal Image Corrections: No attenuation or motion correction applied Summed Stress Score: 0 Summed Rest Score: 0 Summed Difference Score: 0 PERFUSION FINDINGS SPECT images demonstrate homogeneous tracer distribution throughout the myocardium. FUNCTIONAL RESULTS (calculated via Gated SPECT) Stress Image LV EF (%): 86 Stress EDV (mL):65 TID: 1.03 Stress ESV (mL):9 FUNCTIONAL FINDINGS: There is normal left ventricular systolic function. IMPRESSIONS 1. Normal myocardial perfusion imaging with no evidence of ischemia 2. LV systolic function is normal aJbari Sears MD (Electronically Signed) Final Date: 14 Oct 2022 11:19 S
[2022-10-14] MEDS: regadenoson 0.4 Mg/5 ml Syringe IVP (08:05)
[2022-10-14 08:20] VITALS: BP 149/79; PULSE 94
== END 2022-10-14 06:32 | disposition home or self-care (01) ==
LOC: CDL 06:31
PROVIDERS: PCP Family Medicine; Visit Provider Family Medicine
DX: R07.9 Chest pain, unspecified (principal); Z82.49 Family history of ischemic heart disease and other diseases of the circulatory system; R06.09 Other forms of dyspnea; I45.10 Unspecified right bundle-branch block
CPT/HCPCS: 36415; 78452; 93017; 96374; A9500; J2785

== ENCOUNTER → 2022-11-27 11:52 | Outpatient (BNVA) | payer MEDICAID, SELFPAY | PROVIDERS: PCP Family Medicine; Visit Provider Psychiatry & Neurology Psychiatry | DX: F10.21 Alcohol dependence, in remission (principal); F11.20 Opioid dependence, uncomplicated; Z79.899 Other long term (current) drug therapy | CPT/HCPCS: 80307 ==

== ENCOUNTER → 2022-12-23 10:49 | Outpatient (BNVA) | payer MEDICAID, SELFPAY | PROVIDERS: PCP Family Medicine; Visit Provider Otolaryngology | DX: R09.81 Nasal congestion (principal); J34.2 Deviated nasal septum; J34.3 Hypertrophy of nasal turbinates; J31.0 Chronic rhinitis; R04.0 Epistaxis; T48.5X5A Adverse effect of other anti-common-cold drugs, initial encounter; X58.XXXA Exposure to other specified factors, initial encounter | CPT/HCPCS: 99204 ==

== ENCOUNTER → 2023-02-12 11:38 | Outpatient (BNVA) | payer MEDICAID, SELFPAY | PROVIDERS: PCP Family Medicine; Visit Provider Psychiatry & Neurology Psychiatry | DX: F10.21 Alcohol dependence, in remission (principal); F11.20 Opioid dependence, uncomplicated; Z79.899 Other long term (current) drug therapy | CPT/HCPCS: 80307 ==

== ENCOUNTER → 2023-05-21 10:30 | Outpatient (BNVA) | payer MEDICARE, MEDICAID, SELFPAY | PROVIDERS: PCP Family Medicine; Visit Provider Psychiatry & Neurology Psychiatry | DX: F10.21 Alcohol dependence, in remission (principal); F11.20 Opioid dependence, uncomplicated; Z79.899 Other long term (current) drug therapy | CPT/HCPCS: 80307 ==

== ENCOUNTER → 2023-08-20 10:40 | Outpatient (BNVA) | payer MEDICARE, OTHER, SELFPAY | PROVIDERS: PCP Family Medicine; Visit Provider Psychiatry & Neurology Psychiatry | DX: F11.20 Opioid dependence, uncomplicated (principal); Z79.899 Other long term (current) drug therapy; F10.21 Alcohol dependence, in remission | CPT/HCPCS: 80307 ==

== ENCOUNTER → 2023-12-03 11:23 | Outpatient (BNVA) | payer MEDICARE, OTHER, SELFPAY | PROVIDERS: PCP Family Medicine; Visit Provider Psychiatry & Neurology Psychiatry | DX: F11.20 Opioid dependence, uncomplicated (principal); F10.21 Alcohol dependence, in remission; Z79.899 Other long term (current) drug therapy | CPT/HCPCS: 80307 ==

== ENCOUNTER → 2024-02-18 11:28 | Outpatient (BNVA) | payer MEDICARE, SELFPAY | PROVIDERS: PCP Family Medicine; Visit Provider Psychiatry & Neurology Psychiatry | DX: Z79.899 Other long term (current) drug therapy (principal); F11.20 Opioid dependence, uncomplicated; F10.21 Alcohol dependence, in remission | CPT/HCPCS: 80307 ==

== ENCOUNTER → 2024-07-28 11:04 | Outpatient (BNVA) | payer MEDICARE, OTHER, SELFPAY | PROVIDERS: PCP Family Medicine; Visit Provider Psychiatry & Neurology Psychiatry | DX: F11.20 Opioid dependence, uncomplicated (principal); F10.21 Alcohol dependence, in remission; Z79.899 Other long term (current) drug therapy | CPT/HCPCS: 80307 ==

== ENCOUNTER → 2024-12-28 11:23 | Outpatient (BNVA) | payer MEDICARE, OTHER, SELFPAY | PROVIDERS: PCP Family Medicine; Visit Provider Psychiatry & Neurology Psychiatry | DX: Z79.899 Other long term (current) drug therapy (principal); F11.20 Opioid dependence, uncomplicated; F10.21 Alcohol dependence, in remission | CPT/HCPCS: 80307 ==

== ENCOUNTER → 2025-05-25 11:54 | Outpatient (BNVA) | payer MEDICARE, MEDICAID, SELFPAY | PROVIDERS: PCP Family Medicine; Visit Provider Psychiatry & Neurology Psychiatry | DX: F11.20 Opioid dependence, uncomplicated (principal); F10.21 Alcohol dependence, in remission; Z79.899 Other long term (current) drug therapy | CPT/HCPCS: 80307 ==